=== PATIENT | male | born 1965 | race Caucasian/White ===

== ENCOUNTER 2019-09-14 18:28 | Emergency (ER) | payer OTHER ==
[~2019-09-14] VITALS: Ht 170.2 cm; Wt 70.0 kg
--- NOTE | 2019-09-14 18:59 | NUR ---
CALL x 1 IN LOBBY, NO ANSWER.
--- NOTE | 2019-09-14 19:20 | NUR ---
PT REPORTS HE HAD SURGERY TODAY AT 1100AM AND HAS NOT BEEN ABLE TO VOID SINCE. PLACED VITAL SIGNS MONITORS. VSS. SPOUSE AT BEDSIDE. CALL LIGHT WITHIN REACH.
[2019-09-14] MEDS ORDERED: PROP10TA16 PO (19:25)
[2019-09-14] MEDS ORDERED: LIDOCAINE 2%,20 ML JEL.PF.APP MM ONE ×2 (19:37→20:00)
--- NOTE | 2019-09-14 19:45 | NUR ---
CALDWELL PLACED PER ORDER. PT TOLERATED WELL.
--- NOTE | 2019-09-14 20:07 | NUR ---
760ML DRAINED FROM CALDWELL BAG.
[2019-09-14 20:55] VITALS: BP 129/83
== END 2019-09-14 20:58 | disposition home or self-care (01) ==
LOC: ED 20:15
DX: R33.9 Retention of urine, unspecified (principal); R10.30 Lower abdominal pain, unspecified
CPT/HCPCS: 51702; 99284